=== PATIENT | female | born 2000 | race Caucasian/White ===

== ENCOUNTER 2019-06-04 17:39 | Emergency (ER) | payer BC, OTHER ==
[2019-06-04] MEDS ORDERED: Bacitracin 1 PK ONE (19:15)
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
== END 2019-06-04 19:20 | disposition home or self-care (01) ==
LOC: SCSER 17:39
DX: S90.31XA Contusion of right foot, initial encounter (principal); S50.11XA Contusion of right forearm, initial encounter; S70.211A Abrasion, right hip, initial encounter; S50.812A Abrasion of left forearm, initial encounter; V43.52XA Car driver injured in collision with other type car in traffic accident, initial encounter; F41.9 Anxiety disorder, unspecified

== ENCOUNTER 2020-10-06 07:06 | Outpatient (CLI) | payer OTHER ==
--- NOTE | 2020-10-06 09:23 | ULT ---
NECK ULTRASOUND: HISTORY: The patient states she feels swelling on right side of the neck. FINDINGS: Real-time imaging of the area of concern and supraclavicular region shows small nonspecific lymph nod es. No suspicious mass or fluid collection seen. IMPRESSION: Unremarkable ultrasound exam. It may be helpful to obtain CT for better assessment. POS: SEAN
== END 2020-10-06 07:07 | disposition home or self-care (01) ==
LOC: BICULT 07:06
PROVIDERS: ATTEND Physician Assistant
DX: R22.2 Localized swelling, mass and lump, trunk (principal); Z80.8 Family history of malignant neoplasm of other organs or systems
CPT/HCPCS: 76536

== ENCOUNTER 2020-10-16 07:28 | Outpatient (CLI) | payer OTHER ==
--- NOTE | 2020-10-16 09:05 | CT ---
CT of theneck: 10/16/2020 COMPARISON:None available HISTORY:Patient reports a mass on the right clavicle 4 months TECHNIQUE: Serial axial CT imaging at3 mm intervals from theskull base through the lung apices with I V contrast. Coronal and sagittal reformatted imaging obtained. Findings:Retroantral fat and parapharyngeal fat appears clear bilaterally. Bilateral parotid glands a nd submandibular glands appear unremarkable. Mild nonspecific fullness of the right tonsillar pillar/palantine tonsil noted, best seen on axial image 15. The hyoid bone, thyroid gland, and level of the glottis appear unremarkable. No lymphadenopathy is noted within the neck. The imaged lung apices are unremarkable. Vascular structures of the neck appear patent. The area of palpable concern marked in the right supraclavicular region demonstrates no CT abnormalit y. No mass, fluid collection, or enlarged lymph node. The osseous structures are unremarkable. Impression:No CT abnormality to explain the area of palpable concern within the right supraclavicular region. Nonspecific fullness of the right palantine tonsil. Direct visualization advised.
[2020-10-16] MEDS ORDERED: Iopamidol 370 76% 100 ML VIAL ONE (09:23)
== END 2020-10-16 07:29 | disposition home or self-care (01) ==
LOC: BICCT 07:28
PROVIDERS: ATTEND Physician Assistant
DX: R22.2 Localized swelling, mass and lump, trunk (principal)
CPT/HCPCS: 70491; Q9967